=== PATIENT | female | born 1965 | race Caucasian/White ===

== ENCOUNTER 2016-07-29 09:13 | Day surgery (SDC) | payer OTHER ==
[2016-07-28 14:08] VITALS: BMI 22.3
[2016-07-29 10:01] VITALS: TEMP 97.4
[2016-07-29] MEDS ORDERED: PROPOFOL 20 ML ONE ×2 (10:03)
[2016-07-29] MEDS ORDERED: MIDAZOLAM HCL 2 MG/2 ML SINGLE DOSE VIAL ONE (10:03)
[2016-07-29 11:44] VITALS: BP 109/72; PULSE 73
--- NOTE | 2016-07-30 14:01 | PATH ---
Surgical Pathology Report Patient Name: BRIANNA IVY [facility] Rec. #: [id number] /Age/Gender: 1965 (Age: 51) / F Account: [id number] Location: U-ENDOSCOPY Taken: 07/29/2016 Received: 07/29/2016 Reported: 07/30/2016 Physicians: Vikas Baldwin M.D. Specimen(s) Received A: BX RECTAL POLYP B: BX POLYP HEPATIC FLEXURE Clinical History History of colonic polyps Colon polyps, diverticulosis, redundant sigmoid Final Diagnosis A. PROXIMAL RECTUM, POLYP, BIOPSY: HYPERPLASTIC POLYP. B. COLON, HEPATIC FLEXURE, POLYP, BIOPSY: TUBULAR ADENOMA. Electronically Signed Julio Miller M.D. Gross Description A. Received in formalin, labeled "biopsy polyp proximal rectum" is a dawn, irregular portion of soft tissue measuring 0.4 cm in greatest dimension. The specimen is submitted in toto in one cassette. B. Received in formalin, labeled "biopsy polyp hepatic flexure" is a dawn, irregular portion of soft tissue measuring 0.4 cm in greatest dimension. The specimen is submitted in toto in one cassette. 07/29/201607/29/2016
== END 2016-07-29 11:44 | disposition home or self-care (01) ==
LOC: JASU-ENDO 09:13
PROVIDERS: ATTEND Internal Medicine Gastroenterology
PROC: 0DBE8ZX Excision of Large Intestine, Via Natural or Artificial Opening Endoscopic, Diagnostic (ICD-10-PCS; 2016-07-29)
PROC: 0DBP8ZX Excision of Rectum, Via Natural or Artificial Opening Endoscopic, Diagnostic (ICD-10-PCS; principal; 2016-07-29 09:30)
DX: Z86.010 Personal history of colon polyps (principal); K62.1 Rectal polyp; K63.5 Polyp of colon
CPT/HCPCS: 84703; 88305-TC

== ENCOUNTER 2019-04-20 10:03 | Emergency (ER) | payer OTHER, BC ==
[2019-04-20 10:08] VITALS: BP 131/97; PULSE 89; TEMP 98.1; BMI 23.0
--- NOTE | 2019-04-20 10:21 | PDOC ---
History of Present Illness - General Chief Complaint: Pain, Acute Stated Complaint: toe pain Time Seen by Provider: 04/20/19 10:07 - History of Present Illness Initial Comments: 04/20/19 10:19 54 F with COPD on home O2 presenting to ED with toe pain after stubbing it last night. Pt states that she stubbed her L 4th toe on the wooden leg of a couch. Denies falling. Denies any other injury. Now complains of pain with ambulating. Mild swelling and bruising noted this morning. Past History - Past Medical History Allergies/Adverse Reactions: Allergies Allergy/AdvReac Type Severity Reaction Status Date / Time Iodinated Contrast Media Allergy Difficulty Verified 04/20/19 10:04 [IV Dye, Iodine Containing Breathing Contrast ] prednisone AdvReac Elevated Verified 04/20/19 10:04 Blood Pressure Home Medications: Ambulatory Orders Albuterol 0.083% Nebulizer Maria R [Ventolin 0.083% Nebulizer Soln -] 1 neb NEB Q4H PRN 12/06/11 Budesonide/Formoterol Fumarate [Symbicort 160-4.5 Mcg Inhaler] 10.2 gm IH BID Tiotropium Hastings [Spiriva] 1 inh IH DAILY 12/06/11 Metoprolol Succinate [Toprol XL -] 50 mg PO DAILY 02/09/14 Roflumilast [Daliresp] 500 mcg PO DAILY 02/09/14 Alprazolam [Xanax] 0.25 mg PO DAILY PRN #20 tablet 02/15/14 Asthma: Yes COPD: Yes (O2 DEPENDANT) HTN: Yes Kidney Stones: Yes (UVJ obstructions) - Psycho Social/Smoking Cessation Hx Smoking Status: No Smoking History: Never smoked Years of Tobacco Use: 15 Have you smoked in the past 12 months: No Number of Cigarettes Smoked Daily: 0 If you are a former smoker, when did you quit?: 10 YRS Hx Alcohol Use: Yes (ocasional) Drug/Substance Use Hx: No Substance Use Type: None Hx Substance Use Treatment: No Review of Systems - Review of Systems Comments:: 04/20/19 10:20 "GENERAL/CONSTITUTIONAL: No fever or chills. No weakness. HEAD, EYES, EARS, NOSE AND THROAT: No change in vision. No ear pain or discharge. No sore throat. CARDIOVASCULAR: No chest pain, no shortness of breath, no loss of consciousness RESPIRATORY: No cough, wheezing, or hemoptysis. GASTROINTESTINAL: No nausea, vomiting, diarrhea or constipation. GENITOURINARY: No dysuria, frequency, or change in urination. MUSCULOSKELETAL: + L toe pain SKIN: No rash NEUROLOGIC: No vertigo, no change in strength/sensation. ENDOCRINE: No increased thirst. No abnormal weight change. HEMATOLOGIC/LYMPHATIC: No anemia, easy bleeding, or history of blood clots. ALLERGIC/IMMUNOLOGIC: No hives or skin allergy. *Physical Exam - Vital Signs Last Vital Signs Temp Pulse Resp BP Pulse Ox 98.1 F 89 18 131/97 98 04/20/19 10:03 04/20/19 10:03 04/20/19 10:03 04/20/19 10:03 04/20/19 10:03 - Physical Exam Comments: 04/20/19 10:20 "GENERAL: Awake, alert, and fully oriented, in no acute distress. HEAD: No signs of trauma EYES: PERRLA, EOMI, sclera anicteric, conjunctiva clear ENT: Auricles normal inspection, hearing grossly normal, nares patent, oropharynx clear without exudates. Moist mucosa NECK: Nontender, no stepoffs, Normal ROM, supple, no lymphadenopathy, JVD, or masses LUNGS: Breath sounds equal, clear to auscultation bilaterally. No wheezes, and no crackles HEART: Regular rate and rhythm, normal S1 and S2, no murmurs, rubs or gallops ABDOMEN: Soft, nontender, normoactive bowel sounds. No guarding, no rebound. No masses EXTREMITIES: + L 4th toe with mild swelling and ecchymosis, full ROM, sensation intact, flexor and extensor tendons intact, no subungual hematoma NEUROLOGICAL: Cranial nerves II through XII intact. 5/5 strength and sensation in all extremities, Normal speech, normal gait, normal cerebellar function SKIN: Warm, Dry, normal turgor, no rashes or lesions noted. ED Treatment Course - RADIOLOGY Radiology Studies Ordered: Category Date Time Status TOE(S) LEFT [RAD] Stat Radiology 04/20/19 10:18 Ordered Medical Decision Making - Medical Decision Making 04/20/19 10:21 54 F with stubbed L 4th toe. - XR 04/20/19 11:28 XR negative for fx Toe eddy taped Pt is well appearing, with normal vitals. Clinically stable for DC at this time. I discussed the physical exam findings, ancillary test results and final diagnoses with the patient. I answered all of the patient's questions. The patient was satisfied with the care received and felt comfortable with the discharge plan and treatment plan. The patient agrees to follow up with the primary care physician within 24-72 hours. Discharge - Discharge Information Problems reviewed: Yes Clinical Impression/Diagnosis: Toe pain Condition: Stable Disposition: HOME - Follow up/Referral Referrals: Avinash Méndez MD [Staff Physician] - - Patient Discharge Instructions Patient Printed Discharge Instructions: DI for Toe Sprain Additional Instructions: Keep your toe eddy-taped to keep it stable and reduce pain. Elevated your foot and apply ice to reduce swelling. If you experience worsening pain, swelling, discoloration, or any other concerning symptoms, return to the ER immediately. Otherwise, follow up with an orthopedist within 1 week if the pain and swelling do not subside in the next 48 hours. Call the number provided if you need to make an appointment. - Post Discharge Activity
== END 2019-04-20 11:41 | disposition home or self-care (01) ==
LOC: FER 10:03
PROC: 2W3VXYZ Immobilization of Left Toe using Other Device (ICD-10-PCS; principal; 2019-04-20)
DX: M79.675 Pain in left toe(s) (principal); W22.01XA Walked into wall, initial encounter; Y93.89 Activity, other specified; Y92.89 Other specified places as the place of occurrence of the external cause; Z91.041 Radiographic dye allergy status; Z88.8 Allergy status to other drugs, medicaments and biological substances; Z87.891 Personal history of nicotine dependence; J44.9 Chronic obstructive pulmonary disease, unspecified; Z99.81 Dependence on supplemental oxygen; I10 Essential (primary) hypertension; N13.5 Crossing vessel and stricture of ureter without hydronephrosis
CPT/HCPCS: 29550; 73660-TC-LT-FY; 99282-25